=== PATIENT | male | born 1990 | race Caucasian/White ===

== ENCOUNTER 2021-06-12 15:51 | Emergency (ER) | payer MEDICAID, OTHER ==
[~2021-06-12] VITALS: Ht 170.2 cm; Wt 113.4 kg
[2021-06-12 16:00] VITALS: BP 143/61
--- NOTE | 2021-06-12 16:01 | NUR ---
BIBS C/O SINUS CONGESTION X 3 DAYS. DENIES N/V, FEVER, COUGH, BODY ACHE. HAD SORE THROAT EARLIER THIS MORNING. AAOX4, BREATHING EVEN AND UNLABORED, PULSES 2+ BILATERALLY.
[2021-06-12] MEDS ORDERED: AMOX-427 PO (16:03)
[2021-06-12] MEDS ORDERED: CETI1TAB9 PO (16:03)
--- NOTE | 2021-06-12 16:15 | NUR ---
Patient discharged to home in stable condition. Written and verbal after care instructions given. Patient verbalizes understanding of instruction.
== END 2021-06-12 16:15 | disposition home or self-care (01) ==
LOC: ER 15:53
DX: J32.9 Chronic sinusitis, unspecified (principal); F17.200 Nicotine dependence, unspecified, uncomplicated

== ENCOUNTER 2022-01-17 03:38 | Emergency (ER) | payer MEDICAID, OTHER ==
[~2022-01-17] VITALS: Ht 170.2 cm; Wt 122.5 kg
[~2022-01-17 03:38] MED LIST: AMOX-427 PO; CETI1TAB9 PO
[2022-01-17 03:48] VITALS: BP 159/102
[2022-01-17] MEDS ORDERED: TOBR5DRO RIGHTEYE (03:57)
--- NOTE | 2022-01-17 04:03 | NUR ---
Patient discharged to home in stable condition. Written and verbal after care instructions given. Patient verbalizes understanding of instruction.
== END 2022-01-17 04:04 | disposition home or self-care (01) ==
LOC: ER 03:39
DX: H10.9 Unspecified conjunctivitis (principal); J45.909 Unspecified asthma, uncomplicated; F17.200 Nicotine dependence, unspecified, uncomplicated